=== PATIENT | female | born 1965 | race Caucasian/White ===

== ENCOUNTER 2020-09-27 19:16 | Emergency (ER) | payer OTHER ==
--- NOTE | 2020-09-27 21:01 | EDM.PDOC ---
ED HPI GENERAL MEDICAL PROBLEM - General Chief Complaint: General Stated Complaint: COVID SYMPTOMS Time Seen by Provider: 09/27/20 19:40 Source of Information: Reports: Patient History Limitations: Reports: No Limitations - History of Present Illness INITIAL COMMENTS - FREE TEXT/NARRATIVE: Mira is a 54-year-old female presenting to the ED with concerns that she may have COVID-19. She reports having symptoms since last Saturday (4 days ago) consisting of headache, fever and chills, sore throat, cough, shortness of breath, and body aches. She has not been able to check her temperature as she does not have a thermometer at her cabin. She has been working remotely and trying to limit her contact. She denies any history of seasonal allergies. She has had no vomiting or diarrhea. She has no urinary symptoms. 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: Endocrine/Metabolic History: Reports: Hyperthyroidism Dermatologic History: Reports: Eczema - Infectious Disease History Infectious Disease History: Reports: Chicken Pox - Past Surgical History HEENT Surgical History: Reports: Myringotomy w Tube(s), Oral Surgery, Tonsillectomy Female Surgical History: Reports: Hysterectomy Endocrine Surgical History: Reports: Thyroidectomy Social & Family History - Tobacco Use Tobacco Use Status *Q: Never Tobacco User - Caffeine Use Caffeine Use: Reports: Coffee - Recreational Drug Use Recreational Drug Use: No ED ROS GENERAL - Review of Systems Review Of Systems: See Below Constitutional: Reports: Fever, Chills HEENT: Reports: Rhinitis, Throat Pain Respiratory: Reports: Cough Cardiovascular: Reports: No Symptoms Endocrine: Reports: No Symptoms GI/Abdominal: Reports: No Symptoms Musculoskeletal: Reports: No Symptoms Skin: Reports: No Symptoms Neurological: Reports: No Symptoms Psychiatric: Reports: Anxiety Hematologic/Lymphatic: Reports: No Symptoms Immunologic: Reports: No Symptoms ED EXAM, GENERAL - Physical Exam Exam: See Below Exam Limited By: No Limitations General Appearance: Alert, No Apparent Distress Eye Exam: Bilateral Eye: EOMI Nose: Nasal Swelling (Increased erythema and edema of the turbinates with copious clear discharge), Nasal Drainage, Clear Rhinorrhea Throat/Mouth: Normal Inspection, Normal Oropharynx, Normal Voice, No Airway Compromise Head: Atraumatic, Normocephalic Neck: Normal Inspection, Supple, Non-Tender. No: Lymphadenopathy (R), Lymphadenopathy (L) Respiratory/Chest: No Respiratory Distress, Lungs Clear, Normal Breath Sounds Cardiovascular: Normal Peripheral Pulses, Regular Rate, Rhythm, No Murmur GI/Abdominal: Normal Bowel Sounds, Soft, Non-Tender Neurological: Alert, Oriented, Normal Cognition, No Motor/Sensory Deficits Psychiatric: Normal Affect, Normal Mood Skin Exam: Warm, Dry, Intact, Normal Color Course - Vital Signs Last Recorded V/S: Last Vital Signs Temp 36.9 C 09/27/20 19:42 Pulse 96 09/27/20 19:42 Resp 16 09/27/20 19:42 BP 149/110 H 09/27/20 19:42 Pulse Ox 90 L 09/27/20 19:42 - Orders/Labs/Meds Orders: Active Orders 24 hr Category Date Time Status Chest 1V Frontal [CR] Stat Exams 09/27/20 20:01 Ordered Isolation [COMM] Stat Oth 09/27/20 19:34 Ordered Labs: Laboratory Tests 09/27/20 09/27/20 Range/Units 19:34 20:01 C-Reactive Protein 0.54 H (0.0-0.3) mg/dL SARS-CoV-2 RNA ([facility]) Negative (NEGATIVE) - Re-Assessments/Exams Free Text/Narrative Re-Assessment/Exam: 09/27/20 21:01 I reviewed the patient's labs with a mildly elevated CRP and a negative COVID-19 test. Patient refused a CBC. Chest x-ray was unremarkable for any findings. At this time, the patient is suitable for discharge in satisfactory condition. It appears that she has a viral URI and seasonal allergies causing allergic rhinitis. Departure - Departure Time of Disposition: 20:56 Disposition: Home, Self-Care 01 Clinical Impression: Viral URI with cough Allergic rhinitis Qualifiers: Allergic rhinitis trigger: pollen Allergic rhinitis seasonality: seasonal Qualified Code(s): J30.1 - Allergic rhinitis due to pollen - Discharge Information Instructions: Allergic Rhinitis, Adult, [id number], Viral Respiratory Infection Referrals: PCP,None [Primary Care Provider] - Care Plan Goals: Your test today show that you do not have COVID-19. Your examination is consistent with allergic rhinitis and the cough is likely due to the postnasal drip as you are chest is clear. I would recommend one of the [id number] allergy medicines like Donya, Claritin, or Zyrtec. You may also benefit from an decongestant like pseudoephedrine or Mucinex. Cough drops may also be helpful and that they keep your secretions then and cause less irritation to the epiglottis which is what stimulates your cough. Sepsis Event Note (ED) - Evaluation Sepsis Screening Result: No Definite Risk - Focused Exam Vital Signs: Vital Signs Temp Pulse Resp BP Pulse Ox 09/27/20 19:42 36.9 C 96 16 149/110 H 90 L 09/27/20 19:32 36.9 C 96 16 149/110 H 90 L - Problem List & Annotations (1) Allergic rhinitis SNOMED Code(s): 84741707 Code(s): J30.9 - ALLERGIC RHINITIS, UNSPECIFIED Status: Acute Priority: Medium Current Visit: Yes Qualifiers: Allergic rhinitis trigger: pollen Allergic rhinitis seasonality: seasonal Qualified Code(s): J30.1 - Allergic rhinitis due to pollen (2) Viral URI with cough SNOMED Code(s): 836047981, 383070570 Code(s): J06.9 - ACUTE UPPER RESPIRATORY INFECTION, UNSPECIFIED Status: Acute Priority: Medium Current Visit: Yes - Problem List Review Problem List Initiated/Reviewed/Updated: Yes - My Orders Last 24 Hours: My Active Orders 09/27/20 19:34 Isolation [COMM] Stat 09/27/20 20:01 Chest 1V Frontal [CR] Stat - Assessment/Plan Last 24 Hours: My Active Orders 09/27/20 19:34 Isolation [COMM] Stat 09/27/20 20:01 Chest 1V Frontal [CR] Stat
== END 2020-09-27 21:17 | disposition home or self-care (01) ==
LOC: JP.ED 19:16
DX: J06.9 Acute upper respiratory infection, unspecified (principal); J30.1 Allergic rhinitis due to pollen; E07.9 Disorder of thyroid, unspecified; Z79.899 Other long term (current) drug therapy; Z20.822 Contact with and (suspected) exposure to COVID-19
CPT/HCPCS: 36415; 86140; 99284-25; U0002